=== PATIENT | male | born 1980 | race Two or more races ===

== ENCOUNTER 2017-06-11 13:34 | Inpatient (IN) | payer MEDICAID, MEDICARE ==
[~2017-06-11] VITALS: Ht 175.3 cm; Wt 98.5 kg
[2017-06-11 14:39] LABS: Basophils # (auto) 0 uL; Basophils % (auto) 0.3 % (0.0-2.0); Eosinophils # (auto) 0 uL; Eosinophils % (auto) 0.5 % (0.0-7.0); Hematocrit 46.1 % (41.0-53.0); Hemoglobin 15.9 g/dL (13.5-17.5); Lymphocytes # (auto) 2.2 uL; Mean Corpuscular Hemoglobin 31.3 pg (28.0-32.0); Mean Corpuscular Hgb Conc. 34.6 g/dL (32.0-36.0); Mean Corpuscular Volume 90.6 fL (80.0-100.0); Monocytes % (auto) 9.6 % (0.0-12.0); Neutrophils # (auto) 6.9 uL; Neutrophils % (auto) 67.6 % (37.0-80.0); Platelet Count (auto) 316 10^3/uL (140-450); Red Blood Cells 5.08 10^6/uL (4.5-5.90); Red Cell Distribution Width 14.6 % (11.8-14.3); White Blood Cell 10.2 10^3/uL (4.4-10.8)
[2017-06-11 15:01] LABS: Albumin 4.2 g/dL (3.4-5.0); BUN/Creatinine Ratio 11.6; Bilirubin, Total 0.5 mg/dL (0.2-1.0); Calcium 8.8 mg/dL (8.5-10.1); Potassium 3.6 mmol/L (3.5-5.1)
[2017-06-11 19:39] LABS: Urine Bacteria FEW /hpf (None Seen); Urine Blood Negative /uL (Negative); Urine Mucus FEW (None Seen); Urine Specific Gravity 1.028 (1.001-1.035); Urine WBC 1 /hpf (0 - 3)
[2017-06-11 20:08] LABS: Alcohol, Urine < 3.0 mg/dL (0-5); Amphetamine Screen, Urine NEGATIVE (NEGATIVE); Barbiturate Scree,Urine NEGATIVE (NEGATIVE); Benzodiazephine Screen, Urine NEGATIVE (NEGATIVE); Cannabinoid Screen, Urine NEGATIVE (NEGATIVE); Cocaine Screen, Urine POSITIVE (NEGATIVE); Opiate Scree,Urine NEGATIVE (NEGATIVE); Phencyclidine Screen, Urine NEGATIVE (NEGATIVE)
[2017-06-11] MEDS ORDERED: MORPHINE SULFATE 4 MG/ML SYR/VIAL IV ONE (20:30)
[2017-06-11] MEDS ORDERED: ONDANSETRON HCL 4 MG/2 ML VIAL IV ONE (20:30)
[2017-06-11] MEDS ORDERED: SODIUM CHLORIDE 0.9% 1,000 ML IV ONE (20:30)
[2017-06-11] MEDS ORDERED: metroNIDAZOLE 500MG/100ML 100 ML IV ONE (20:30)
[2017-06-11] MEDS ORDERED: ACETAMINOPHEN 500 MG TAB PO PRN (22:15)
[2017-06-11] MEDS ORDERED: ONDANSETRON HCL 4 MG/2 ML VIAL IV PRN (22:15)
[2017-06-11] MEDS ORDERED: PANTOPRAZOLE 40 MG/10 ML VIAL IV ONE (22:15)
[2017-06-11] MEDS: SODIUM CHLORIDE 0.9% 1,000 ML IV SCH (22:57)
[2017-06-11 23:30] VITALS: BP 136/79
[2017-06-12] MEDS: SODIUM CHLORIDE 0.9% 1,000 ML IV SCH ×2 (02:41→18:50)
[2017-06-12 05:00] VITALS: BP 138/70
[2017-06-12] MEDS: metroNIDAZOLE 500MG/100ML 100 ML IV SCH ×3 (06:33→23:00)
[2017-06-12 06:46] LABS: Basophils # (auto) 0.1 uL; Basophils % (auto) 0.9 % (0.0-2.0); Eosinophils # (auto) 0.1 uL; Eosinophils % (auto) 1.4 % (0.0-7.0); Hematocrit 39.3 % (41.0-53.0); Hemoglobin 13.4 g/dL (13.5-17.5); Lymphocytes % (auto) 33.7 % (10.0-50.0); Mean Corpuscular Hgb Conc. 34.1 g/dL (32.0-36.0); Mean Corpuscular Volume 90.9 fL (80.0-100.0); Monocytes % (auto) 11.3 % (0.0-12.0); Neutrophils # (auto) 4.7 uL; Neutrophils % (auto) 52.7 % (37.0-80.0); Nucleated Red Blood Cells % 0.1 %; Platelet Count (auto) 275 10^3/uL (140-450); Red Blood Cells 4.33 10^6/uL (4.5-5.90); Red Cell Distribution Width 14.8 % (11.8-14.3)
[2017-06-12 07:00] LABS: Albumin 2.9 g/dL (3.4-5.0); Calcium 7.9 mg/dL (8.5-10.1); Potassium 3.4 mmol/L (3.5-5.1)
[2017-06-12 07:03] LABS: BUN/Creatinine Ratio 17.4
[2017-06-12 07:05] LABS: Bilirubin, Total 0.5 mg/dL (0.2-1.0); Total Protein 6.5 g/dL (6.4-8.2)
[2017-06-12] MEDS: HYDROcodone-ACET 5/325MG TAB PO PRN ×3 (08:04→23:07)
[2017-06-12 08:48] VITALS: BP 127/73
[2017-06-12] MEDS ORDERED: PANTOPRAZOLE 40 MG/10 ML VIAL IV SCH (10:00)
[2017-06-12] MEDS: cefTRIAXone 1GM/10ml IVPUSH 10 ML IV SCH (11:01)
[2017-06-12] MEDS: MORPHINE SULFATE 4 MG/ML SYR/VIAL IV PRN (11:30)
[2017-06-12 12:00] VITALS: BP 150/87
[2017-06-12] MEDS: DICYCLOMINE HCL 10 MG CAP PO SCH ×3 (15:26→23:00)
[2017-06-12] MEDS ORDERED: GOLYTELY 4L KIT PO ONE (15:30)
[2017-06-12 16:59] VITALS: BP_SYST 142; BP_SYST 159; BP_DIAS 106; BP_DIAS 74
[2017-06-12 22:00] VITALS: BP 142/91
[2017-06-12 22:45] VITALS: BP 95/51
[2017-06-12] MEDS: PANTOPRAZOLE 40 MG/10 ML VIAL IV SCH (23:00)
[2017-06-13] MEDS: SODIUM CHLORIDE 0.9% 1,000 ML IV SCH ×2 (04:15→13:12)
[2017-06-13 05:00] VITALS: BP 138/76
[2017-06-13] MEDS: DICYCLOMINE HCL 10 MG CAP PO SCH ×4 (05:12→22:02)
[2017-06-13] MEDS: metroNIDAZOLE 500MG/100ML 100 ML IV SCH ×3 (06:13→22:02)
[2017-06-13 08:00] VITALS: BP 137/98
[2017-06-13 08:03] LABS: INR 0.97 (0.9-1.15); Partial Thromboplastin Time 25.7 sec (22.64-33.71); Prothrombin Time 10.6 sec (9.37-12.3)
[2017-06-13] MEDS: cefTRIAXone 1GM/10ml IVPUSH 10 ML IV SCH (08:25)
[2017-06-13] MEDS: PANTOPRAZOLE 40 MG/10 ML VIAL IV SCH (08:25)
[2017-06-13] MEDS: MORPHINE SULFATE 4 MG/ML SYR/VIAL IV PRN ×2 (08:26→19:56)
[2017-06-13 09:00] VITALS: BP 137/98
[2017-06-13] MEDS ORDERED: NALOXONE HCL 0.4 MG/ML VIAL ONE (09:37)
[2017-06-13] MEDS ORDERED: FLUMAZENIL 0.1 MG/ML INJ 10ML MDV IV ONE (09:37)
[2017-06-13] MEDS ORDERED: LIDOCAINE VISCOUS 2% 15ML UD ONE (09:38)
[2017-06-13] MEDS ORDERED: diphenhdrAMINE HCL 50 MG/1 ML VL ONE (09:38)
[2017-06-13] MEDS: MIDAZOLAM HCL 5 MG/ML-1ML VIAL ONE ×2 (11:48→11:51)
[2017-06-13] MEDS: fentaNYL CITRATE 100 MCG/2 ML VL ONE ×2 (11:48→11:51)
[2017-06-13 13:00] VITALS: BP 149/104
[2017-06-13 17:00] VITALS: BP 159/97
[2017-06-13 22:00] VITALS: BP 142/79
[2017-06-13] MEDS: PANTOPRAZOLE 40 MG TAB PO SCH (22:03)
[2017-06-14 05:00] VITALS: BP 137/86
[2017-06-14] MEDS: SODIUM CHLORIDE 0.9% 1,000 ML IV SCH ×2 (05:22→10:15)
[2017-06-14] MEDS: metroNIDAZOLE 500MG/100ML 100 ML IV SCH (05:51)
[2017-06-14] MEDS: DICYCLOMINE HCL 10 MG CAP PO SCH ×2 (05:51→12:00)
[2017-06-14] MEDS: HYDROcodone-ACET 5/325MG TAB PO PRN (05:52)
[2017-06-14 09:00] VITALS: BP 141/85
[2017-06-14] MEDS: cefTRIAXone 1GM/10ml IVPUSH 10 ML IV SCH (09:09)
[2017-06-14] MEDS: PANTOPRAZOLE 40 MG TAB PO SCH (09:10)
[2017-06-14 13:00] VITALS: BP 146/97
[2017-06-14 13:49] VITALS: BP 146/97
== END 2017-06-14 14:40 | disposition home or self-care (01) | DRG 392 ==
LOC: ER 13:34 → TELE 13:35 → TELE-CENTR 23:23
PROVIDERS: ADMIT Nurse Practitioner Family; ATTEND Internal Medicine Pulmonary Disease
PROC: 0DB68ZX Excision of Stomach, Via Natural or Artificial Opening Endoscopic, Diagnostic (ICD-10-PCS; principal; 2017-06-13 11:46)
PROC: 0DBM8ZZ Excision of Descending Colon, Via Natural or Artificial Opening Endoscopic (ICD-10-PCS; 2017-06-13 11:46)
DX: K52.9 Noninfective gastroenteritis and colitis, unspecified (principal); E44.1 Mild protein-calorie malnutrition; D12.4 Benign neoplasm of descending colon; K57.30 Diverticulosis of large intestine without perforation or abscess without bleeding; E16.2 Hypoglycemia, unspecified; K29.70 Gastritis, unspecified, without bleeding; F41.9 Anxiety disorder, unspecified; Z68.32 Body mass index [BMI] 32.0-32.9, adult; Z82.49 Family history of ischemic heart disease and other diseases of the circulatory system; Z89.211 Acquired absence of right upper limb below elbow; Z90.49 Acquired absence of other specified parts of digestive tract
CPT/HCPCS: 36415; 43239; 45385; 74176; 80053; 80307; 81001; 82150; 83690; 85025; 85610; 85652; 85730; 87045; 87493; 87899; 96361; 96365; 96375; C9113; J2250; J3490